=== PATIENT | male | born 1965 | race Caucasian/White ===

== ENCOUNTER 2018-09-21 21:13 | Emergency (ER) | payer BC, OTHER ==
[2018-09-21 21:20] VITALS: BP 119/64; PULSE 69; TEMP 97.6; BMI 25.7
--- NOTE | 2018-09-21 21:35 | PDOC ---
History of Present Illness - General History Source: Patient Exam Limitations: No Limitations - History of Present Illness Initial Comments: 09/21/18 21:36 Patient is a 53 year old male with a significant past medical history of Asthma and Bladder abnormality who presents to the ED with complaints of left testicular pain that began yesterday evening. Patient reports sitting down when he began to experiencing sudden left testicle pain that he states lasted no more than a minutes before subsiding. He reports experiencing the again this afternoon while attempting to lift a large box, stating the pain began in his left testicle before radiating up towards his left lower quadrant. Patient reports experiencing left testicular pain a third time while sitting down this afternoon doing nothing, prompting him to come into the ED for further evaluation. Denies chest pain, Sob. Denies nausea, vomiting. Denies fevers, chills. Denies contact with sick individuals, out of state travelling. Denies any other symptoms. Allergies: Acetaminophen, Oxycodone. Social history: No smoking. No alcohol. No illicit drugs. Surgical history: None PMD: None <Sreekanth Thornton - Last Filed: 09/21/18 21:39> <Eri Thomas - Last Filed: 09/22/18 02:05> - General Chief Complaint: Pain Stated Complaint: PAIN LEFT TESTICLE LAST NIGHT Time Seen by Provider: 09/21/18 21:18 Past History <Sreekanth Thornton - Last Filed: 09/21/18 21:39> - Past Medical History Asthma: Yes COPD: No GI Disorders: Yes Disorders: Yes ("BLADDER PROBLEM") - Surgical History Cholecystectomy: Yes - Immunization History Immunization Up to Date: Yes - Suicide/Smoking/Psychosocial Hx Smoking Status: No Smoking History: Never smoked Have you smoked in the past 12 months: No Number of Cigarettes Smoked Daily: 0 Information on smoking cessation initiated: No Hx Alcohol Use: Yes (OCCAS) Drug/Substance Use Hx: No <Eri Thomas - Last Filed: 09/22/18 02:05> - Past Medical History Allergies/Adverse Reactions: Allergies Allergy/AdvReac Type Severity Reaction Status Date / Time acetaminophen [From Percocet] AdvReac Mild Nausea Verified 09/21/18 21:15 oxycodone HCl [From Percocet] AdvReac Mild Nausea Verified 09/21/18 21:15 Home Medications: Ambulatory Orders Omeprazole [Prilosec (RX)] 40 mg PO DAILY 02/07/12 Terazosin HCl [Hytrin] 1 mg NR DAILY 02/07/12 Review of Systems - Review of Systems Able to Perform ROS?: Yes Comments:: 09/21/18 21:37 GENERAL/CONSTITUTIONAL: No fever or chills. No weakness. HEAD, EYES, EARS, NOSE AND THROAT: No change in vision. No ear pain or discharge. No sore throat. CARDIOVASCULAR: No chest pain or shortness of breath. RESPIRATORY: No cough, wheezing, or hemoptysis. GASTROINTESTINAL: No nausea, vomiting, diarrhea or constipation. GENITOURINARY: +Left testicular pain. No dysuria, frequency, or change in urination. MUSCULOSKELETAL: No joint or muscle swelling or pain. No neck or back pain. SKIN: No rash NEUROLOGIC: No headache, vertigo, loss of consciousness, or change in strength/ sensation. ENDOCRINE: No increased thirst. No abnormal weight change. HEMATOLOGIC/LYMPHATIC: No anemia, easy bleeding, or history of blood clots. ALLERGIC/IMMUNOLOGIC: No hives or skin allergy. <Sreekanth Thornton - Last Filed: 09/21/18 21:39> *Physical Exam - Vital Signs Last Vital Signs Temp Pulse Resp BP Pulse Ox 97.6 F 69 16 119/64 100 09/21/18 21:17 09/21/18 21:17 09/21/18 21:17 09/21/18 21:17 09/21/18 21:17 - Physical Exam Comments: 09/21/18 21:37 GENERAL: Awake, alert, and fully oriented, in no acute distress HEAD: No signs of trauma EYES: PERRLA, EOMI, sclera anicteric, conjunctiva clear ENT: Auricles normal inspection, hearing grossly normal, nares patent, oropharynx clear without exudates. Moist mucosa NECK: Normal ROM, supple, no lymphadenopathy, JVD, or masses LUNGS: Breath sounds equal, clear to auscultation bilaterally. No wheezes, and no crackles HEART: Regular rate and rhythm, normal S1 and S2, no murmurs, rubs or gallops ABDOMEN: Soft, nontender, normoactive bowel sounds. No guarding, no rebound. No masses PELVIC: Normal EXTREMITIES: Normal range of motion, no edema. No clubbing or cyanosis. No cords, erythema, or tenderness NEUROLOGICAL: Cranial nerves II through XII grossly intact. Normal speech, normal gait SKIN: Warm, Dry, normal turgor, no rashes or lesions noted. <Sreekanth Thornton - Last Filed: 09/21/18 21:39> - Vital Signs Last Vital Signs Temp Pulse Resp BP Pulse Ox 97.6 F 69 16 119/64 100 09/21/18 21:17 09/21/18 21:17 09/21/18 21:17 09/21/18 21:17 09/21/18 21:17 <Eri Thomas - Last Filed: 09/22/18 02:05> Moderate Sedation - Procedure Monitoring Vital Signs: Procedure Monitoring Vital Signs Temperature 97.6 F 09/21/18 21:17 Pulse Rate 69 09/21/18 21:17 Respiratory Rate 16 09/21/18 21:17 Blood Pressure 119/64 09/21/18 21:17 O2 Sat by Pulse Oximetry (%) 100 09/21/18 21:17 <Sreekanth Thornton - Last Filed: 09/21/18 21:39> - Procedure Monitoring Vital Signs: Procedure Monitoring Vital Signs Temperature 97.6 F 09/21/18 21:17 Pulse Rate 69 09/21/18 21:17 Respiratory Rate 16 09/21/18 21:17 Blood Pressure 119/64 09/21/18 21:17 O2 Sat by Pulse Oximetry (%) 100 09/21/18 21:17 <Eri Thomas - Last Filed: 09/22/18 02:05> Progress Note - Progress Note Progress Note: Documentation has been prepared under my direction and personally reviewed by me in its entirety. I attest that this documented accurately reflects all work, treatment, procedures and medical decision making performed by me. <Eri Thomas - Last Filed: 09/22/18 02:05> Medical Decision Making - Medical Decision Making As noted above, this 53-year-old man presents with a few episodes of left-sided scrotal pain over the last 24 hours. Each episode is brief (lasting a minute or 2); although first episode of pain was related to exertion, he has been feeling the pain at rest now. Although he has a history of varicocele on the left side, he has no other history of scrotal abnormality. He currently has a urologist (Dr. 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 Exam as noted. Scrotal ultrasound shows small varicocele/small hydrocele on the left without evidence of torsion or other abnormality. Results discussed with the patient. He should call his urologist tomorrow to arrange for follow-up within the next several days. Meanwhile, he should avoid any heavy lifting/pulling/pushing <Eri Thomas - Last Filed: 09/22/18 02:05> *DC/Admit/Observation/Transfer - Attestations Scribe Attestion: 09/21/18 21:37 Documentation prepared by Sreekanth Thornton, acting as medical coding instructor for Eri Thomas MD. <Sreekanth Thornton - Last Filed: 09/21/18 21:39> <Eri Thomas - Last Filed: 09/22/18 02:05> Diagnosis at time of Disposition: Left testicular pain - Discharge Dispostion Disposition: HOME Condition at time of disposition: Stable - Patient Instructions Printed Discharge Instructions: DI for Testicular Pain Additional Instructions: avoid strenuous lifting/pushing/pulling for the next week call your urologist tomorrow to arrange followup within 5-7 days return to ER if pain worsens or you develop swelling/discharge/fever
== END 2018-09-22 00:27 | disposition home or self-care (01) ==
LOC: FER 21:13
DX: N50.812 Left testicular pain (principal); J45.909 Unspecified asthma, uncomplicated; N39.9 Disorder of urinary system, unspecified
CPT/HCPCS: 76870-TC; 99281-25